=== PATIENT | female | born 1990 | race Two or more races ===

== ENCOUNTER → 2019-10-11 | Outpatient (CLI) | payer OTHER | END | disposition home or self-care (01) | LOC: PRENATAL 14:30 | PROVIDERS: ATTEND Obstetrics & Gynecology Maternal & Fetal Medicine | DX: O35.3XX0 Maternal care for (suspected) damage to fetus from viral disease in mother, not applicable or unspecified (principal); O35.0XX1 Maternal care for (suspected) central nervous system malformation in fetus, fetus 1; O34.82 Maternal care for other abnormalities of pelvic organs, second trimester ==

== ENCOUNTER → 2020-01-11 | Outpatient (CLI) | payer OTHER | END | disposition home or self-care (01) | LOC: PRENATAL 15:42 | PROVIDERS: ATTEND Obstetrics & Gynecology Maternal & Fetal Medicine | DX: O36.8131 Decreased fetal movements, third trimester, fetus 1 (principal); O26.843 Uterine size-date discrepancy, third trimester; Z36.89 Encounter for other specified antenatal screening; Z3A.33 33 weeks gestation of pregnancy ==

== ENCOUNTER 2020-02-22 17:30 | Inpatient (IN) | payer OTHER ==
[~2020-02-22] VITALS: Ht 160 cm; Wt 3.2 kg
[2020-02-22] MEDS ORDERED: PRENATAL CAPLE1 EAC1 PO (18:17)
[2020-02-26] MEDS ORDERED: CODE1TAB37 PO (08:03)
[2020-02-26] MEDS ORDERED: NAPR500T14 PO (08:04)
[2020-02-26] MEDS ORDERED: DOCUSATE SODIU100 MG PO (08:09)
== END 2020-02-26 14:31 | disposition home or self-care (01) | DRG 807 ==
LOC: LDR 17:30 → O/R 17:30 → OB/GYN 02-23 15:03
PROVIDERS: ADMIT Obstetrics & Gynecology; ATTEND Obstetrics & Gynecology
PROC: 0KQM0ZZ Repair Perineum Muscle, Open Approach (ICD-10-PCS; 2020-02-23)
PROC: 4A1HXFZ Monitoring of Products of Conception, Cardiac Rhythm, External Approach (ICD-10-PCS; 2020-02-23)
PROC: 3E0P7VZ Introduction of Hormone into Female Reproductive, Via Natural or Artificial Opening (ICD-10-PCS; 2020-02-23)
PROC: 3E033VJ Introduction of Other Hormone into Peripheral Vein, Percutaneous Approach (ICD-10-PCS; 2020-02-23)
PROC: 10E0XZZ Delivery of Products of Conception, External Approach (ICD-10-PCS; principal; 2020-02-23 13:00)
DX: O70.1 Second degree perineal laceration during delivery (principal); Z37.0 Single live birth; Z3A.39 39 weeks gestation of pregnancy; Z20.828 Contact with and (suspected) exposure to other viral communicable diseases